=== PATIENT | female | born 1975 | race African-American/Black ===

== ENCOUNTER → 2020-05-19 10:32 | Outpatient (CLI) | payer OTHER, SELFPAY ==
--- NOTE | ~2020-05-19 | US_ITS ---
EXAMINATION: US transvaginal DATE: 05/19/2020 10:55 INDICATION: Menorrhagia TECHNIQUE: Multiple endovaginal sonographic images of the pelvis were obtained. COMPARISON: None. FINDINGS: The uterus measures 10.9 x 9.8 x 7 cm. There is a 4.5 x 4.6 cm isoechoic lesion of the uter ine fundus with the appearance of an intramural fibroid. A 4.3 x 2.0 cm lesion with similar sonograph ic features is seen posteriorly in the uterine body, also suggestive of an intramural fibroid. The en dometrial complex measures 12 mm. The right ovary measures 3.9 x 2.6 x 3.4 cm. The left ovary measure s 4.1 x 3.9 x 2.9 cm. There is normal vascular flow in the ovaries. There is a small amount of free f luid in the pelvis. IMPRESSION: 1. Uterine fibroids. Reviewed, dictated and finalized at location A. IMPRESSION: 1. Uterine fibroids.
== END ==
PROVIDERS: Visit Provider Obstetrics & Gynecology
DX: N92.0 Excessive and frequent menstruation with regular cycle (principal); D25.9 Leiomyoma of uterus, unspecified
CPT/HCPCS: 76830

== ENCOUNTER 2020-06-08 08:05 | Outpatient (RCR) | payer MEDICAID, SELFPAY ==
[2020-06-09] VITALS (7 sets, daily range): BP systolic 170–194; BP diastolic 85–99; PULSE 58–84; RESP 12–18; TEMP 36.4–37.2; O2SAT 98–100
[2020-06-09] MEDS: ACETAMINOPHEN 500 MG TABLET PO (09:33)
[2020-06-09] MEDS: diphenhydrAMINE HCl CAP 25 MG CAPSULE PO (09:34)
== END 2020-09-06 23:59 | disposition home or self-care (01) ==
LOC: ANHCPCTRAN 08:05
PROVIDERS: PCP Family Medicine; Visit Provider Obstetrics & Gynecology
DX: D64.9 Anemia, unspecified (principal)
CPT/HCPCS: 36415; 36430; 86850; 86900; 86901; 86920; A9270; P9016

== ENCOUNTER 2020-06-08 12:19 | Emergency (ER) | payer MEDICAID, SELFPAY ==
[2020-06-08 12:21] VITALS: PULSE 62; RESP 20; TEMP 36.6; O2SAT 100
--- NOTE | 2020-06-08 12:38 | ED.RECABL ---
HPI - Recheck/Abnormal Lab/Rx General Chief Complaint: Recheck/Abnormal Lab/Rx Stated Complaint: anemia/needs transfusion per md Time Seen by Provider: 06/08/20 12:34 Source: RN notes reviewed History of Present Illness HPI narrative: Patient presents to emergency department from home for low hemoglobin. Patient is followed by Dr. Bustillo and states she has been having menstrual cycles that have been heavier than normal. She had had outpatient lab work drawn showed hemoglobin of 5.8 and was referred to the emergency department for further evaluation. Patient states she has been feeling weak worse with ambulation but denies having any fevers or chills chest pain shortness of breath abdominal pain nausea vomiting or any other symptoms. Patient does state she has a current history of breast cancer is being followed by Dr. Mondragon but has had no current chemotherapy Related Data Home Medications Medication Instructions Recorded Confirmed amlodipine 06/08/20 apixaban [Eliquis] mg 06/08/20 clonidine 06/08/20 losartan 06/08/20 metoprolol succinate PO 06/08/20 spironolactone 06/08/20 Allergies Allergy/AdvReac Type Severity Reaction Status Date / Time No Known Allergies Allergy Verified 06/08/20 12:58 Review of Systems Review of Systems: Narrative: Gen.: Denies fevers or chills ENT: Denies congestion Respiratory: Denies shortness of breath or cough CV: Denies chest pain or palpitations GI: Denies abdominal pain nausea, emesis or diarrhea see HPI Musculoskeletal: Denies back pain or muscle pain Neuro: Denies numbness, tingling, weakness or focal weakness Skin: Denies rash Except as documented, all other systems reviewed and negative FOR[facility]LY [facility] Past Medical History Medical History (Updated 06/08/20 @ 14:48 by Zak Santana DO) Breast cancer Social History Social History (Updated 06/08/20 @ 12:40 by Zak Santana DO) Smoking status: Never smoker Exam Narrative: Exam Narrative: APPEARANCE: No acute distress, nontoxic, resting in bed EYES: EOMI HEENT: Normocephalic, atraumatic, OMM RESPIRATORY: No respiratory distress Clear to auscultation bilaterally with no rhonchi wheezing or rales. CARDIOVASCULAR: Regular rate and rhythm without murmurs rubs or gallops. ABDOMINAL: Soft, nontender, nondistended, no rebound or guarding MUSCULOSKELETAl: Moves all extremities. NEURO: Awake and alert. Following commands, speech normal, no focal deficits SKIN:: Warm, dry. No rashes lesions or abrasions PSYCHIATRIC: Normal affect/mood, Course Course Emergency Course: Called and discussed with Dr. Bustillo and initial plan to admit patient with patient to receive 2 units of PRBCs. I went discussed with the patient the plan for admission the patient states she does not wish to be admitted. She states that this can be done as an outpatient and states that she will not stay in the hospital. At this time I again called and discussed with Dr. Bustillo. Dr. Bustillo is in agreement with discharge we will set the patient up for outpatient blood transfusion tomorrow. Awaiting read discussed with the patient who is in agreement with this plan and will be discharged at this time Vital Signs Vital signs: Vital Signs Temperature 97.8 F 06/08/20 12:21 Pulse Rate 62 06/08/20 12:21 Respiratory Rate 20 06/08/20 12:21 Pulse Oximetry 100 06/08/20 12:21 Temperature 97.9 F 06/08/20 14:00 Pulse Rate 61 06/08/20 14:00 Respiratory Rate 17 06/08/20 14:00 Blood Pressure 197/109 H 06/08/20 14:00 Pulse Oximetry 100 06/08/20 14:00 MDM - Recheck/Abnormal Lab/Rx Lab Data Result diagrams: 06/08/20 12:46 06/08/20 12:46 Labs: Lab Results 06/08/20 06/08/20 06/08/20 Range/Units 12:46 12:46 12:46 WBC 5.7 (4.5-10.0) K/mm3 RBC 3.14 L (4.2-5.4) M/mm3 Hgb 5.8 L* (12.0-15.0) g/dL Hct 20.6 L* (37.0-47.0) % MCV 65.6 L (80-100) fl MCH 18.5 L (26-34) pg MC
[2020-06-08 12:50] VITALS: RESP 19; O2SAT 97
[2020-06-08 13:00] VITALS: BP 195/122; PULSE 64; RESP 16; TEMP 36.9; O2SAT 100
[2020-06-08 13:00] LABS: Basophils Percent Auto 0.5 % (0.2-1.2); Eosinophils Absolute Auto 0.1 K/mm3 (0-0.3); Eosinophils Percent Auto 1.9 % (0-4.4); Immature Granulocyte Absolute 0.01 K/mm3 (0.00-0.031); Immature Granulocyte Percent A 0.2 % (0-0.5); Lymphocytes Absolute Auto 1.55 K/mm3 (0.9-3.2); Lymphocytes Percent Auto 27.4 % (18.3-44.2); Mean Corpuscular HGB Conc 28.2 g/dl (32-36); Mean Corpuscular Hemoglobin 18.5 pg (26-34); Mean Corpuscular Volume 65.6 fl (80-100); Mean Platelet Volume 10.3 fl (7.4-10.4); Monocytes Absolute Auto 0.5 K/mm3 (0.1-0.6); Monocytes Percent Auto 8.7 % (2.6-8.5); Neutrophils Absolute Auto 3.5 K/mm3 (1.3-6.7); Neutrophils Percent Auto 61.3 % (45.5-73.1); Nucleated Red Blood Cells Perc 0.5 % (0.0-0.2); Platelet Count Result 436 k/mm3 (150-375); Red Blood Count 3.14 M/mm3 (4.2-5.4); Red Cell Distribution Width 18.4 % (11.5-14.5); White Blood Count 5.7 K/mm3 (4.5-10.0)
[2020-06-08 13:11] LABS: Alanine Aminotransferase 25 U/L (4-35); Albumin Level 4.3 g/dL (3.5-5.1); Alkaline Phosphatase 41 U/L (38-126); Anion Gap 6 mmol/L (8-16); Aspartate Amino Transferase 25 U/L (14-36); Bilirubin,Total 0.4 mg/dL (0.2-1.3); Blood Urea Nitrogen 11 mg/dL (7-17); Calcium 9.1 mg/dL (8.4-10.2); Carbon Dioxide 27 mmol/L (22-30); Chloride 105 mmol/L (98-107); Estimated CRCL calculation 68 ml/min; Estimated Glomerular Filt Rate 59; Glucose 98 mg/dL (65-105); Potassium 4.2 mmol/L (3.4-5.0); Sodium 138 mmol/L (137-145)
[2020-06-08 13:17] LABS: Hemoglobin 5.8 g/dL (12.0-15.0)
[2020-06-08 13:18] LABS: Hematocrit 20.6 % (37.0-47.0)
[2020-06-08 14:00] VITALS: BP 197/109; PULSE 61; RESP 17; TEMP 36.6; O2SAT 100
--- NOTE | 2020-06-08 14:24 | PC.NURSE ---
Lab was called and notified of add on for BHCGChago Hamilton from lab reports he will call back if there are any problems running the test.
--- NOTE | 2020-06-08 14:30 | PC.NURSE ---
Patient does have port in place to left upper chest. She states that It doesn't have blood return at all .
--- NOTE | 2020-06-08 14:32 | PC.NURSE ---
Patient reports that she has had lymph nodes removed bilaterally after cancer diagnosis and will have lympedema in her upper extremities occasionally. She consented to IV placement in left arm. She does not consent to blood pressure measurements being taken in either arm. She does consent to blood pressures being obtained in her legs and reports that they will be very high referring to her blood pressure measurements.
[2020-06-08 15:02] LABS: Beta HCG Quantitative < 2.39 mIU/ML
[2020-06-08 15:05] VITALS: BP 201/115; PULSE 67; RESP 16; TEMP 36.4; O2SAT 100
--- NOTE | 2020-06-08 15:15 | PC.NURSE ---
Patient departed ED at 1505. Unable to depart the patient in the EMR.
== END 2020-06-08 16:15 | disposition home or self-care (01) ==
PROVIDERS: Emergency Provider Emergency Medicine
DX: D64.9 Anemia, unspecified (principal); C50.919 Malignant neoplasm of unspecified site of unspecified female breast
CPT/HCPCS: 36415; 80053; 84702; 85025; 86850; 86900; 86901; 86920; 99283

== ENCOUNTER → 2021-03-27 01:58 | Outpatient (CLI) | payer OTHER, SELFPAY ==
[2021-03-27 18:16] LABS: SARS-CoV-2 RNA PCR Negative
== END ==
PROVIDERS: PCP Family Medicine; Visit Provider Obstetrics & Gynecology
DX: Z01.812 Encounter for preprocedural laboratory examination (principal); Z20.822 Contact with and (suspected) exposure to COVID-19
CPT/HCPCS: 36415; 80048; 85014; 85018; 93005; C9803; U0003; U0005

== ENCOUNTER 2021-03-27 09:09 | Outpatient (CLI) | payer OTHER, SELFPAY ==
--- NOTE | 2021-03-27 09:15 | ECG_ITS ---
Measurements Intervals Rudd Rate: 55 P: 9 SD: 177 QRS: -12 QRSD: 103 T: 3 QT: 424 QTc: 408 Interpretive Statements SINUS BRADYCARDIA VOLTAGE CRITERIA FOR LVH POOR R WAVE PROGRESSION, ANTERIOR LEADS BORDERLINE ECG Electronically Signed On 03-27-2021 9:35:00 CDT by Manny Regalado D.O.
[2021-03-27 09:38] LABS: Hematocrit 34.9 % (37.0-47.0); Hemoglobin 10.8 g/dL (12.0-15.0)
[2021-03-27 09:49] LABS: Anion Gap 7 mmol/L (8-16); Blood Urea Nitrogen 11 mg/dL (7-17); Calcium 9.9 mg/dL (8.4-10.2); Carbon Dioxide 29 mmol/L (22-30); Chloride 109 mmol/L (98-107); Estimated Glomerular Filt Rate 59; Glucose 103 mg/dL (65-105); Potassium 3.8 mmol/L (3.4-5.0); Sodium 145 mmol/L (137-145)
== END 2021-03-27 09:10 | disposition home or self-care (01) ==
PROVIDERS: Anesthesiology; PCP Family Medicine; Visit Provider Obstetrics & Gynecology
DX: D64.9 Anemia, unspecified (principal); I10 Essential (primary) hypertension; Z01.818 Encounter for other preprocedural examination; R94.31 Abnormal electrocardiogram [ECG] [EKG]
CPT/HCPCS: 36415; 80048; 85014; 85018; 93005

== ENCOUNTER 2021-03-30 09:40 | Day surgery (SDC) | payer OTHER, SELFPAY ==
[2021-03-21 14:27] VITALS: BMI 32.8
[2021-03-30 09:05] VITALS: BP 175/96; PULSE 65; RESP 16; TEMP 36.4; O2SAT 99
[2021-03-30] MEDS: ACETAMINOPHEN 500 MG TABLET 1000 MG PO (09:13)
--- NOTE | 2021-03-30 09:16 | PM.HPGS ---
History of Present Illness History of Present Illness Consent: Risks, benefits, and alternatives have been discussed and questions answered. Patient agrees to proceed with procedure. Chief complaint: Bilateral breast cancer Narrative: Laureen Nobles is a 45 year old female presented to the office with a history of bilateral breast cancer. Oncologist recommending prophylactic oopherectomy. [facility] Past Medical History Medical History Breast cancer Social History Social History Smoking status: Never smoker Gender identity (if verbalized by the patient): Female Meds Home Medications and Allergies Home Medications Medication Instructions Recorded Confirmed Type amlodipine 10 mg PO DAILY 06/08/20 03/30/21 History clonidine 1 patch TRANSDERMAL WEEKLY 06/08/20 03/30/21 History losartan 50 mg PO DAILY 06/08/20 03/30/21 History metoprolol succinate 100 mg PO BID 06/08/20 03/30/21 History spironolactone 50 mg PO DAILY 06/08/20 03/30/21 History polysaccharide iron complex 150 mg PO DAILY 03/21/21 03/30/21 History [Poly-Iron] Allergies Allergy/AdvReac Type Severity Reaction Status Date / Time latex Allergy Mild Rash Verified 03/30/21 09:10 CHEMO DRUG AdvReac Severe Muscle Uncoded 03/30/21 09:10 Spasms Exam Const: General: cooperative Resp: Auscultation: clear to auscultation bilaterally Cardio: Rate: regular rate Rhythm: regular rhythm GI: Inspection: normal to inspection : Speculum Exam - Cervix: Cervical os closed Bimanual exam- vagina & uterus: enlarged Bimanual Exam- Adnexa, other: normal adnexae Assessment and Plan Assessment and plan (1) Breast cancer: Code(s): C50.919 - Malignant neoplasm of unspecified site of unspecified female breast Status: Acute Assessment and Plan: scheduled for a bilateral oopherectomy for prophylaxis. Risk and benefits reviewed with patient in detail. Patient agrees to proceed.
[2021-03-30] MEDS: LACTATED RINGERS 1,000 ML 30 ML IV CONT (09:22)
[2021-03-30] MEDS: KETOROLAC 15 MG/ML VIAL (*BKC) IV PUSH (09:23)
--- NOTE | 2021-03-30 09:26 | WPDANESEPPF ---
Anes - Initial Pre Proc Eval Procedure: Operation Date: 03/30/21 10:30 Proposed Procedures p Laparoscopic Bilateral Oophorectomy - Ritchie Bustillo MD Date/Time: 03/30/21 09:26 Surgeon: Ritchie Bustillo MD Pre Op Diagnosis: Bilateral breast cancer Patient Data Age: 45 Gender: F Height: 1.8 m Weight: 104.7 kg Last Vital Signs Temp 36.4 C L 03/30/21 09:05 Pulse 65 03/30/21 09:05 Resp 16 03/30/21 09:05 BP 175/96 H 03/30/21 09:05 Pulse Ox 99 03/30/21 09:05 Allergies Allergy/AdvReac Type Severity Reaction Status Date / Time latex Allergy Mild Rash Verified 03/30/21 09:10 CHEMO DRUG AdvReac Severe Muscle Uncoded 03/30/21 09:10 Spasms Home Medications Medication Instructions Recorded Confirmed Type amlodipine 10 mg PO DAILY 06/08/20 03/30/21 History clonidine 1 patch TRANSDERMAL WEEKLY 06/08/20 03/30/21 History losartan 50 mg PO DAILY 06/08/20 03/30/21 History metoprolol succinate 100 mg PO BID 06/08/20 03/30/21 History spironolactone 50 mg PO DAILY 06/08/20 03/30/21 History polysaccharide iron complex 150 mg PO DAILY 03/21/21 03/30/21 History [Poly-Iron] Patient hx anesthesia problems: none Family hx anesthesia problems: none PMFSH Past Medical History Medical History (Updated 03/30/21 @ 09:29 by Ron Hawkins MD) Breast cancer Obesity Status post hysteroscopy Surgical History Surgical History (Updated 03/30/21 @ 09:30 by Ron Hawkins MD) History of mastectomy Social History Social History Smoking status: Never smoker Gender identity (if verbalized by the patient): Female Anes - Eval Final PreProcedure Day of Procedure 03/30/21 09:26 Patient weight: obese Heart: regular rate and rhythm Lungs: clear to auscultation Airway: Mallampati scale class II Neurological: alert and oriented Last oral intake: >/= 8 hours ASA classification: III Emergent: no Anesthetic plan: proceed Anesthesia type and monitoring: general ETT and standard monitoring Informed Consent: The patient's anesthetic plan and its attendant risks and benefits were discussed with the patient/family/POA. Questions were solicited and answers provided to the satisfaction of the patient/family/POA.
--- NOTE | 2021-03-30 10:50 | WPDHPUPDATE1 ---
History and Physical Update Update Date/Time: 03/30/21 10:50 History and Physical has been reviewed, including an updated exam of the patient. There are NO changes in the patient's condition. Surgery canceled due to insurance precertification. will reschedule for later date. Risks, benefits, and alternatives have been discussed and questions answered. Patient agrees to proceed with procedure.
--- NOTE | 2021-03-30 12:44 | SUR.PREOP ---
per office case cancelled due to no insurance authorization. pt instructed to call office and discharged home.
== END 2021-03-30 10:30 | disposition home or self-care (01) ==
PROVIDERS: PCP Family Medicine; Visit Provider Obstetrics & Gynecology
PROC: (CPT 49320; principal; 2021-03-30 10:30)
DX: Z40.02 Encounter for prophylactic removal of ovary(s) (principal); Z85.3 Personal history of malignant neoplasm of breast; E66.9 Obesity, unspecified; Z68.32 Body mass index [BMI] 32.0-32.9, adult
CPT/HCPCS: 99213; A9270; G0463; J1885; J7030; J7120

== ENCOUNTER 2021-07-12 08:00 | Outpatient (CLI) | payer BC, MEDICAID, SELFPAY ==
[2021-07-12 08:24] LABS: Hematocrit 36.9 % (37.0-47.0); Hemoglobin 11.3 g/dL (12.0-15.0)
[2021-07-12 08:35] LABS: Anion Gap 6 mmol/L (8-16); Blood Urea Nitrogen 11 mg/dL (7-17); Calcium 10.1 mg/dL (8.4-10.2); Carbon Dioxide 29 mmol/L (22-30); Chloride 107 mmol/L (98-107); Estimated Glomerular Filt Rate 59; Glucose 94 mg/dL (65-110); Potassium 4.4 mmol/L (3.4-5.0); Sodium 142 mmol/L (137-145)
== END 2021-07-12 08:01 | disposition home or self-care (01) ==
PROVIDERS: Anesthesiology; PCP Family Medicine; Visit Provider Obstetrics & Gynecology
DX: D64.9 Anemia, unspecified (principal); Z79.899 Other long term (current) drug therapy; Z01.818 Encounter for other preprocedural examination
CPT/HCPCS: 36415; 80048; 85014; 85018

== ENCOUNTER 2021-07-14 00:35 | Day surgery (SDC) | payer BC, MEDICAID, SELFPAY ==
[2021-07-07 14:15] VITALS: BMI 32.1
[2021-07-14] VITALS (8 sets, daily range): BP systolic 119–130; BP diastolic 62–81; PULSE 62–78; RESP 14–16; TEMP 36.4–37.1; O2SAT 95–100
--- NOTE | 2021-07-14 09:34 | PM.HPGS ---
History of Present Illness History of Present Illness Consent: Risks, benefits, and alternatives have been discussed and questions answered. Patient agrees to proceed with procedure. Chief complaint: prophylactic removal of ovaries Narrative: Laureen Nobles is a 45 year old female presented to the office with a history of bilateral breast cancer. Oncologist recommending prophylactic oopherectomy. Review of Systems Review of Systems: All systems reviewed & are unremarkable except as noted in HPI and below PMFSH Past Medical History Medical History (Updated 07/14/21 @ 09:36 by Ritchie Bustillo MD) Breast cancer Hypertension Obesity Status post hysteroscopy Surgical History Surgical History History of mastectomy Social History Social History Smoking status: Former smoker Smoking end date: 09/30/18 Additional smoking assessment comments: SOCIAL Alcohol intake: never Substance use: never Substance use type: does not use Living arrangements: alone Gender identity (if verbalized by the patient): Female Sexual Orientation (if Verbalized by the Patient): Straight or Heterosexual Spiritual care concerns: No Meds Home Medications and Allergies Home Medications Medication Instructions Recorded Confirmed Type amlodipine 10 mg PO HS 06/08/20 07/07/21 History clonidine 1 patch TRANSDERMAL WEEKLY 06/08/20 07/07/21 History losartan 50 mg PO DAILY 06/08/20 07/07/21 History metoprolol succinate 100 mg PO BID 06/08/20 07/07/21 History spironolactone 100 mg PO BID 06/08/20 07/07/21 History montelukast 10 mg PO HS 07/07/21 07/07/21 History Allergies Allergy/AdvReac Type Severity Reaction Status Date / Time latex Allergy Mild Rash Verified 07/07/21 14:11 CHEMO DRUG AdvReac Severe Muscle Uncoded 07/07/21 14:11 Spasms Exam Const: Orientation/consciousness: patient oriented x3 Resp: Effort & Inspection: normal respiratory effort Auscultation: clear to auscultation bilaterally Cardio: Rate: regular rate Rhythm: regular rhythm GI: Auscultation: normal bowel sounds : Speculum Exam - Vagina: normal appearance of the vagina Speculum Exam - Cervix: normal appearance of the cervix Bimanual exam- vagina & uterus: enlarged Assessment and Plan Assessment and plan (1) Breast cancer: Code(s): C50.919 - Malignant neoplasm of unspecified site of unspecified female breast Status: Acute Assessment and Plan: plan laporoscopic bilateral oopherectomy for history bilateral breast cancer.
[2021-07-14] MEDS: ACETAMINOPHEN 500 MG TABLET 1000 MG PO (11:09)
[2021-07-14] MEDS: LACTATED RINGERS 1,000 ML 30 ML IV CONT ×2 (11:18→13:42)
[2021-07-14] MEDS: KETOROLAC 15 MG/ML VIAL (*BKC) IV PUSH (11:20)
--- NOTE | 2021-07-14 11:24 | P.PNAN_ITS ---
Anes - Initial Pre Proc Eval Procedure: Operation Date: 07/14/21 12:00 Proposed Procedures p Laparoscopic Bilateral Oophorectomy - Ritchie Bustillo MD Date/Time: 07/14/21 11:24 Surgeon: Ritchie Bustillo MD Pre Op Diagnosis: prophylactic removal of ovaries Patient Data Age: 45 Gender: F Height: 1.8 m Weight: 104.3 kg Last Vital Signs Temp 36.4 C 07/14/21 11:20 Pulse 68 07/14/21 11:20 BP 130/81 07/14/21 11:20 Pulse Ox 98 07/14/21 11:20 Allergies Allergy/AdvReac Type Severity Reaction Status Date / Time latex Allergy Mild Rash Verified 07/07/21 14:11 heparin Allergy Hives Verified 07/14/21 11:01 CHEMO DRUG AdvReac Severe Muscle Uncoded 07/07/21 14:11 Spasms Home Medications Medication Instructions Recorded Confirmed Type amlodipine 10 mg PO HS 06/08/20 07/14/21 History clonidine 1 patch TRANSDERMAL WEEKLY 06/08/20 07/14/21 History losartan 50 mg PO DAILY 06/08/20 07/14/21 History metoprolol succinate 100 mg PO BID 06/08/20 07/14/21 History spironolactone 100 mg PO BID 06/08/20 07/14/21 History montelukast 10 mg PO HS 07/07/21 07/14/21 History Patient hx anesthesia problems: none Family hx anesthesia problems: none Results Review: All pre-operative results and documents have been reviewed as part of the pre-operative evaluation. [facility] Past Medical History Medical History Breast cancer Hypertension Obesity Status post hysteroscopy Surgical History Surgical History History of mastectomy Social History Social History Smoking status: Former smoker Smoking end date: 09/30/18 Additional smoking assessment comments: SOCIAL Alcohol intake: never Substance use: never Substance use type: does not use Living arrangements: alone Gender identity (if verbalized by the patient): Female Sexual Orientation (if Verbalized by the Patient): Straight or Heterosexual Spiritual care concerns: No Anes - Eval Final PreProcedure Day of Procedure 07/14/21 11:24 Patient weight: obese Heart: regular rate and rhythm Lungs: clear to auscultation Airway: Mallampati scale class II Neurological: alert and oriented Last oral intake: >/= 8 hours ASA classification: III Emergent: no Anesthetic plan: proceed Anesthesia type and monitoring: general ETT and standard monitoring Results Review: All pre-operative results and documents have been reviewed as part of the pre-operative evaluation. Informed Consent: The patient's anesthetic plan and its attendant risks and benefits were discussed with the patient/family/POA. Questions were solicited and answers provided to the satisfaction of the patient/family/POA.
--- NOTE | 2021-07-14 11:40 | WPDHPUPDATE1 ---
History and Physical Update Update Date/Time: 07/14/21 11:40 History and Physical has been reviewed, including an updated exam of the patient. There are NO changes in the patient's condition. Risks, benefits, and alternatives have been discussed and questions answered. Patient agrees to proceed with procedure.
[2021-07-14] MEDS: LIDOCAINE HCL 1% PF 30 ML VIAL 10 ML INFILTRATE (11:56)
--- NOTE | 2021-07-14 13:32 | PM.OP ---
Procedure Note - Brief Procedure Note - Brief Date of procedure: 07/14/21 Pre-op diagnosis: prophylactic removal of ovaries Post-op diagnosis: same Procedure performed: Laparoscopy with bilateral salpingo oophorectomy Description of procedure: Patient was taken to the operating room with IV running. She was prepped draped in normal sterile fashion and placed in a dorsal lithotomy position. The bladder was drained with a latex-free catheter and 10cc of clear urine noted a bivalve speculum was then placed in the vagina anterior lip of the cervix was grasped with a single-tooth tenaculum uterus was sounded to 9cm. An acorn manipulator was then placed into the uterine cervix for uterine manipulation. Attention was then turned to the abdomen and a 1cm incision was made in the umbilical fold after 3cc of lidocaine was injected. The Veress needle was used to insufflate the abdomen after passing the drop test. The abdomen was filled with CO2 gas to a maximum pressure of 15mmHg. The trocar was then advanced under dialect presumed direct visualization with scope. Who and a 5mm port was placed under direct visualization on the left lower you had lower abdomen and a 11mm port was placed on the right. The uterus was noted to be enlarged with several fibroids the pelvis. The uterine manipulator and graspers were used to elevate the uterus to visualize the ovaries. The left ovary and tube was grasped and transecting the infundibulpelvic ligament and uterine ovarian ligament with Harmonic scalpel. And laid in the anterior cul-de-sac. Attention was then turned to the right tube and ovary which was grasped with the Harmonic scalpel and the same procedure was performed on the right side. And OC the back was placed into the abdomen the tubes and ovaries were placed into the back and removed through the abdomen. Prior to removal of the in endobag the incision was extended by 1cm hemostasis was assured the ports were removed under direct visualization the right incision fascia was closed with 2 6 on 0 Vicryl stitch closing the fascia. The skin incisions were closed with 4-0 Vicryl suture and closed with Dermabond. The vaginal instruments were removed from the vagina and patient was taken to recovery room in stable condition Anesthesia: GETA Surgeon: Ritchie Bustillo MD Estimated blood loss (mL): 10 Urine output (mL): 10 Drains: No Packing: No Pathology: yes Complications: None Disposition: PACU Findings: enlarged uterus with multiple fibroids.
[2021-07-14] MEDS: HYDROmorphone HCL INJ (*CRX) 1 MG/ML SYR 0.25 MG IV PUSH ×2 (14:05→14:32)
[2021-07-14] MEDS: oxyCODONE HCL (*CRX) 5 MG TAB IR PO (15:05)
== END 2021-07-14 15:55 | disposition home or self-care (01) ==
PROVIDERS: PCP Family Medicine; Visit Provider Obstetrics & Gynecology
PROC: (CPT 49320; principal; 2021-07-14 12:00)
DX: Z40.02 Encounter for prophylactic removal of ovary(s) (principal); C50.919 Malignant neoplasm of unspecified site of unspecified female breast; Z87.891 Personal history of nicotine dependence; I10 Essential (primary) hypertension; N83.8 Other noninflammatory disorders of ovary, fallopian tube and broad ligament; N83.02 Follicular cyst of left ovary; N83.01 Follicular cyst of right ovary; N83.202 Unspecified ovarian cyst, left side
CPT/HCPCS: 58661; 88305; A9270; J1100; J1170; J1885; J2250; J2405; J2704; J2710; J3010; J7120